=== PATIENT | female | born 1965 | race Caucasian/White ===

== ENCOUNTER 2018-01-19 19:39 | Emergency (ER) | payer OTHER ==
[~2018-01-19] VITALS: Ht 162.6 cm; Wt 84.4 kg
[2018-01-19] MEDS ORDERED: HYZAAR 100-251 EACH (19:52)
[2018-01-19] MEDS ORDERED: CIPROFLOXACIN750 MG (19:52)
== END 2018-01-19 22:38 | disposition home or self-care (01) ==
LOC: ER 19:39
DX: R10.31 Right lower quadrant pain (principal)